=== PATIENT | female | born 1990 ===

== ENCOUNTER 2016-05-27 22:43 | Emergency (ER) | payer OTHER ==
[2016-05-27 22:46] VITALS: BP 116/78; PULSE 83; RESP 16; TEMP 97.9; O2SAT 100
[2016-05-27 23:16] LABS: HEMATOCRIT 36.9 % (34.0-47.0); MEAN CELL VOLUME 94.6 fl (81.0-99.0); MEAN CORPUSCULAR HEMOGLOBIN 31.3 pg (27.0-31.0); MEAN CORPUSCULAR HGB CONC 33.1 g/dL (33.0-37.0); RED CELL DISTRIBUTION WIDTH 13.2 % (11.5-14.5); WHITE BLOOD COUNT 7.1 K/uL (4.8-10.8)
[2016-05-27 23:29] LABS: ALB/GLOB RATIO 1.2 (1.0-2.1); ALCOHOL SERUM 264 mg/dl (0-10); ALKALINE PHOSPHATASE 88 U/L (38-126); ALT/SGPT 22 U/L (9-52); AST/SGOT 26 U/L (14-36); BILIRUBIN,TOTAL 0.6 mg/dl (0.2-1.3); BLOOD UREA NITROGEN 5 mg/dl (7-17); CALCIUM 8.7 mg/dL (8.4-10.2); CARBON DIOXIDE 21 mmol/L (22-30); CHLORIDE 105 mmol/L (98-107); GFR AFRICAN-AMERICAN > 60; GLUCOSE,RANDOM 116 mg/dL (65-105); POTASSIUM 3.6 MMOL/L (3.6-5.0); SODIUM 146 mmol/l (132-148); TOTAL PROTEIN 8.4 G/DL (6.3-8.2)
--- NOTE | 2016-05-28 03:51 | ED PDOC ---
HPI: Psych/Substance Abuse Time Seen by Provider: 05/27/16 22:50 Chief Complaint (Nursing): Alcohol Ingestion Chief Complaint (Provider): ETOH History Per: Patient History/Exam Limitations: no limitations Onset/Duration Of Symptoms: Hrs Current Symptoms Are (Timing): Still Present Additional Complaint(s): EMS called by boyfriend. Pt was laying on ground and vomiting after drinking. Past Medical History Reviewed: Historical Data, Nursing Documentation, Vital Signs, Unable To Obtain Vital Signs: Last Vital Signs Temp 97.9 F 05/27/16 22:44 Pulse 83 05/27/16 22:44 Resp 16 05/27/16 22:44 BP 116/78 05/27/16 22:44 Pulse Ox 100 05/27/16 22:44 - Family History Family History: States: Unknown Family Hx - Allergies Allergies/Adverse Reactions: Allergies Allergy/AdvReac Type Severity Reaction Status Date / Time Unobtainable Allergy Verified 05/27/16 22:44 Review of Systems Review Of Systems: ROS cannot be obtained secondary to pt's inabilty to answer questions. Physical Exam - Reviewed Nursing Documentation Reviewed: Yes Vital Signs Reviewed: Yes - Physical Exam Appears: Positive for: Well, Non-toxic, No Acute Distress Head Exam: Positive for: ATRAUMATIC, NORMAL INSPECTION, NORMOCEPHALIC Skin: Positive for: Normal Color, Warm, DRY Eye Exam: Positive for: EOMI, Normal appearance, PERRL ENT: Positive for: Normal ENT Inspection Neck: Positive for: Normal, Painless ROM Cardiovascular/Chest: Positive for: Regular Rate, Rhythm Respiratory: Positive for: Normal Breath Sounds. Negative for: Accessory Muscle Use, Respiratory Distress Gastrointestinal/Abdominal: Positive for: Normal Exam, Bowel Sounds, Soft Back: Positive for: Normal Inspection Extremity: Positive for: Normal ROM Neurologic/Psych: Positive for: Alert (with sternal rub ) - Laboratory Results Result Diagrams: 05/27/16 22:54 05/27/16 22:54 - ECG O2 Sat by Pulse Oximetry: 100 Medical Decision Making Medical Decision Makin - Clear speech and steady gait. Disposition - Clinical Impression Clinical Impression: Alcohol abuse with intoxication - Patient ED Disposition Is Patient to be Admitted: No Counseled Patient/Family Regarding: Diagnosis, Need For Followup - Disposition Referrals: [facility] [Outside] Disposition: Routine/Home Disposition Time: 04:01 Condition: STABLE Instructions: Abuse of Alcohol (ED)
== END 2016-05-28 04:09 | disposition home or self-care (01) ==
LOC: H.ER 22:43
DX: F10.129 Alcohol abuse with intoxication, unspecified (principal)